=== PATIENT | male | born 1995 | race Caucasian/White ===

== ENCOUNTER 2022-05-06 19:57 | Emergency (ER) | payer MEDICAID ==
[~2022-05-06] VITALS: Ht 172.7 cm; Wt 93.0 kg
[2022-05-06 21:10] VITALS: BP 148/94
--- NOTE | 2022-05-06 21:10 | NUR ---
BIBS FOR DOG BITE R FA
[2022-05-06] MEDS ORDERED: TDAP [DIPH/PERTUSSIS/TET] 0.5 ML VIAL IM ONE ×2 (21:12→21:30)
[2022-05-06] MEDS ORDERED: AMOX-430 PO (21:14)
--- NOTE | 2022-05-06 21:18 | NUR ---
Patient discharged to home in stable condition. Written and verbal after care instructions given. Patient verbalizes understanding of instruction.
== END 2022-05-06 21:19 | disposition home or self-care (01) ==
LOC: ER 20:01
DX: S60.511A Abrasion of right hand, initial encounter (principal); W54.0XXA Bitten by dog, initial encounter; Y93.89 Activity, other specified; Y92.89 Other specified places as the place of occurrence of the external cause; Y99.8 Other external cause status
CPT/HCPCS: 99283; 90471; 90715; A6403